=== PATIENT | female | born 1985 | race African-American/Black ===

== ENCOUNTER 2019-05-13 14:12 | Emergency (ER) | payer OTHER, MEDICAID ==
[~2019-05-13] VITALS: Ht 170.2 cm; Wt 74.8 kg
[~2019-05-13 14:12] MED LIST: FLAGYL500 MG PO; NAPROSYN500 MG PO; ONDANSETRON HCL4 M2 PO; PRENATAL VITAM1 EAC9 PO; PROPRANOLOL 1010 M1; PROPRANOLOL 1010 MG PO; ZANTAC 150MG T150 MG PO; ZOLOFT25 MG; ZOLOFT50 MG PO
[2019-05-13 14:44] LABS: URINE BILIRUBIN NEGATIVE (Negative); URINE BLOOD 1+ (Negative); URINE CLARITY CLEAR; URINE COLOR YELLOW; URINE GLUCOSE-RANDOM NEGATIVE (Negative); URINE KETONES TRACE (Negative); URINE LEUKOCYTES-REFLEX NEGATIVE (Negative); URINE NITRITE-REFLEX NEGATIVE (Negative); URINE PROTEIN NEGATIVE (Negative); URINE SPECIFIC GRAVITY 1.015 (1.005-1.030)
[2019-05-13 14:53] LABS: CASTS None Seen /LPF (None Seen); CRYSTALS None Seen /LPF (None Seen); SQUAMOUS 0-3 Few /LPF (0-3); URINE RBC 0-2 Rare /HPF (0-2); URINE WBC-REFLEX 0-5 Rare /HPF (0-5)
[2019-05-13 15:17] LABS: ABSOLUTE BASOPHILS 0.1 thou/uL (0.0-0.2); ABSOLUTE EOSINOPHILS 0.1 thou/uL (0.0-0.7); ABSOLUTE MONOCYTES 0.7 thou/uL (0.0-1.2); ABSOLUTE NEUTROPHILS 6.6 thou/uL (1.6-8.1); BASOPHILS 0.7 %; EOSINOPHILS 0.8 %; HEMATOCRIT 39.7 % (37.0-47.0); HEMOGLOBIN 13.3 gm/dL (12.0-15.0); LYMPHOCYTES 28.5 %; MCH 31.4 pg (26.0-34.0); MCHC 33.6 g/dL (28.0-37.0); MCV 93.3 fL (80.0-100.0); MONOCYTES 6.9 %; MPV 9.7 fl. (7.2-11.1); NUCLEATED RBCS 0 /100WBC; PLATELET COUNT* 217 thou/uL (150-400); POLYS 63.1 %; RBC 4.25 mil/uL (4.20-5.00); RDW-CV 13.1 % (10.5-14.5); WBC 10.5 thou/uL (4.0-11.0)
[2019-05-13 15:22] LABS: CALCIUM 8.9 mg/dL (8.5-10.1); CREATININE 0.8 mg/dL (0.6-1.3); POTASSIUM 3.2 mmol/L (3.5-5.1)
[2019-05-13 15:26] LABS: ALBUMIN 3.5 g/dL (3.4-5.0); TOTAL BILIRUBIN 0.6 mg/dL (<0.1-1.0); TOTAL PROTEIN 7.2 g/dL (6.4-8.2)
[2019-05-13] MEDS ORDERED: VAGISIL CREAM28 G1 TOP (16:01)
[2019-05-13] MEDS ORDERED: MACROBID 100 M100 M2 PO (16:01)
[2019-05-13] MEDS ORDERED: NABUMETONE 750750 M1 PO (16:15)
[2019-05-13 16:24] VITALS: BP 124/84
== END 2019-05-13 16:24 | disposition home or self-care (01) ==
LOC: M.ERS 14:12
PROVIDERS: Nurse Practitioner Family
DX: N39.0 Urinary tract infection, site not specified (principal); N76.0 Acute vaginitis; N83.201 Unspecified ovarian cyst, right side; F41.9 Anxiety disorder, unspecified; Z98.890 Other specified postprocedural states